=== PATIENT | male | born 2000 | race Caucasian/White ===

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

== ENCOUNTER 2021-10-09 11:32 | Emergency (ER) | payer OTHER ==
[~2021-10-09] VITALS: Ht 175.3 cm; Wt 74.8 kg
[~2021-10-09 11:32] MED LIST: HYDROCORT 2.5%-30 GM TOP
--- NOTE | 2021-10-09 13:57 | EKG ---
[facility] [address] [place], [place] [address] Signed Normal sinus rhythm Normal ECG No previous ECGs available Confirmed by EDER COLBY MD ([id number]) on 10/09/2021 1:57:48 PM Electronically Signed By: EDER COLBY MD 10/09/21 1357 PATIENT NAME: SOREN GRIMES Electrocardiogram DATE OF : [birth year] PHYSICIAN: EDER COLBY MD REPORT #: [id number] REPORT IS CONFIDENTIAL AND NOT TO BE RELEASED WITHOUT AUTHORIZATION
== END 2021-10-09 13:22 | disposition home or self-care (01) ==
LOC: ED 11:32
DX: R09.1 Pleurisy (principal)
CPT/HCPCS: 71046; 93005; 93010; 99285-25; A9270

== ENCOUNTER 2023-07-23 11:25 | Emergency (ER) | payer OTHER ==
[~2023-07-23] VITALS: Ht 175.3 cm; Wt 79.1 kg
--- NOTE | ~2023-07-23 | EKG ---
[facility] [address] [place], [place] [address] Draft EKG completed, results pending confirmation PATIENT NAME: SOREN GRIMES CHARLENE Electrocardiogram DATE OF : [birth year] PHYSICIAN: PRELIMINARY REPORT #: [id number] REPORT IS CONFIDENTIAL AND NOT TO BE RELEASED WITHOUT AUTHORIZATION
[2023-07-23 12:46] VITALS: BP 110/65
== END 2023-07-23 12:47 | disposition home or self-care (01) ==
LOC: ED 11:25
DX: R07.89 Other chest pain (principal); R09.1 Pleurisy
CPT/HCPCS: 71045; 93005; 93010